=== PATIENT | male | born 1955 | race Caucasian/White ===

== ENCOUNTER 2021-08-21 16:36 | Emergency (ER) | payer OTHER, SELFPAY ==
--- NOTE | 2021-08-21 16:39 | ED.URI ---
HPI - URI/Sore Throat General Chief Complaint: Upper Respiratory Infection Stated Complaint: Sore Throat,Head Congestion,Bilateral Ear Pain Time Seen by Provider: 08/21/21 16:53 Source: patient and RN notes reviewed Mode of arrival: ambulatory Limitations: no limitations History of Present Illness HPI Narrative: 65-year-old male presents concern for sore throat, nasal congestion, bilateral ear pain, diarrhea, body aches. Reports symptoms started on Saturday, worsened on Saturday. He reports he has been vaccinated for Covid. 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 MD elicited complaint: sore throat Related Data Home Medications Medication Instructions Recorded Confirmed atorvastatin 80 mg PO DAILY 08/21/21 08/21/21 losartan 100 mg PO DAILY 08/21/21 08/21/21 metformin 850 mg PO DAILY 08/21/21 08/21/21 sildenafil (pulm.hypertension) 20 mg PO PRN PRN 08/21/21 08/21/21 Allergies Allergy/AdvReac Type Severity Reaction Status Date / Time iodine Allergy Severe Anaphylaxis Verified 08/21/21 16:55 Review of Systems Review of Systems: CONSTITUTIONAL: Denies malaise, chills, sweats, or fever. EYES: Denies visual changes, redness, or discharge. ENT: Reports rhinorrhea, congestion, otalgia and sore throat. CARDIOVASCULAR: Denies chest pain, palpitations, or edema. RESPIRATORY: Denies cough or dyspnea. GASTROINTESTINAL: Denies abdominal pain, nausea, vomiting. Reports diarrhea SKIN: Denies rash or itching. MUSCULOSKELETAL: Reports myalgia. NEUROLOGIC: Reports headache. All systems reviewed & are unremarkable except as noted in HPI and below PMFSH Comments At time of signature, agree with nursing past medical, surgical, social and family history. There is no relevant family history pertinent to the presenting complaint Exam Narrative: GENERAL: Well-appearing, well-nourished, and in no acute distress. HEAD: Normocephalic EYES: PERRLA, conjunctivae clear ENT: Nares clear, clear discharge. Mucous membranes moist. TM pearly mark with dull light reflex bilaterally; no tragal tenderness. Oropharynx not erythematous without lesions. Tonsils not enlarged and without exudate, no drooling, no hoarseness, no trismus, uvula midline. NECK: Supple. No lymphadenopathy CHEST: Clear to auscultation, breath sounds equal. No wheezing, rhonchi, rales, or stridor. No respiratory distress, speaks in full sentences. HEART: Regular rate and rhythm. No murmur heard. SKIN: Warm, dry, no rash. NEURO: Alert and oriented x3. PSYCH: Normal mood and affect Course Course Emergency Course: Patient is aware of diagnosis, understands and agrees to treatment plan. Anticipatory guidance given. Patient agrees to follow-up as directed and is aware of reasons to seek care at the emergency department. Portions of this record may have been created with voice recognition software Vital Signs Vital signs: Reviewed. MDM - URI/Sore Throat MDM Narrative Medical decision making narrative: Differential diagnosis considered: Coon virus, strep pharyngitis, allergic rhinitis, upper respiratory tract infection, sinusitis, rhinosinusitis, nasopharyngitis. viral pharyngitis, otitis media, otitis externa, pneumonia, bronchitis, viral cough syndrome, viral syndrome, and influenza. Exam findings show no acute concerns or changes; patient is non-toxic appearing and is in no distress. Patient is appropriate for outpatient treatment and follow-up. Lab Data Lab results narrative: PCR Covid test ordered Critical Care Time Critical Care Time Critical Care Time: No Discharge Plan Discharge Clinical Impression: Upper respiratory infection Qualifiers: URI type: unspecified viral URI Qualified Code(s): J06.9 - Acute upper respiratory infection, unspecified Patient Disposition: Home, Self-Care Condition: Stable Instructions: Upper Respiratory Infection (ED) Additional Instructions: A Covid PCR is being sent to the lab,
[2021-08-21 16:50] VITALS: BP 147/85; PULSE 88; RESP 16; TEMP 37.1; O2SAT 96
[2021-08-22 18:19] LABS: SARS-CoV-2 RNA PCR Negative
== END 2021-08-21 17:10 | disposition home or self-care (01) ==
PROVIDERS: Emergency Provider Nurse Practitioner
DX: J06.9 Acute upper respiratory infection, unspecified (principal); Z20.822 Contact with and (suspected) exposure to COVID-19
CPT/HCPCS: 99213; C9803; G0463; U0003; U0005

== ENCOUNTER 2022-10-24 08:10 | Emergency (ER) | payer OTHER, SELFPAY ==
--- NOTE | 2022-10-24 08:18 | ED.URI ---
HPI - URI/Sore Throat General Chief Complaint: Upper Respiratory Infection Stated Complaint: cold/flu sx Time Seen by Provider: 10/24/22 08:43 Source: patient and RN notes reviewed Mode of arrival: ambulatory Limitations: no limitations History of Present Illness HPI Narrative: 66-year-old male presents with concern for 3-4 day history of nasal congestion, rhinorrhea, persistent cough. 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 He reports his coworkers have had similar symptoms. He has received a flu shot. He denies diarrhea, vomiting, nausea. Reports some muscle aches that he thinks are related to coughing MD elicited complaint: cough Related Data Home Medications Medication Instructions Recorded Confirmed atorvastatin 80 mg tablet 80 mg PO DAILY 08/21/21 10/24/22 losartan 100 mg tablet 100 mg PO DAILY 08/21/21 10/24/22 metformin 850 mg tablet 850 mg PO DAILY 08/21/21 10/24/22 sildenafil (pulm.hypertension) 20 20 mg PO PRN PRN Erectile 08/21/21 10/24/22 mg tablet Dysfunction tamsulosin 0.4 mg capsule 0.4 mg PO DAILY 10/24/22 10/24/22 Allergies Allergy/AdvReac Type Severity Reaction Status Date / Time iodine Allergy Severe Anaphylaxis Verified 10/24/22 08:45 Review of Systems Review of Systems: CONSTITUTIONAL: Reports malaise, low-grade fever. EYES: Denies visual changes, redness, or discharge. ENT: Reports rhinorrhea, congestion. Denies sinus pain, otalgia and sore throat. CARDIOVASCULAR: Denies chest pain, palpitations, or edema. RESPIRATORY: Reports cough. Denies dyspnea. GASTROINTESTINAL: Denies abdominal pain, nausea, vomiting, diarrhea SKIN: Denies rash or itching. MUSCULOSKELETAL: Reports myalgia. NEUROLOGIC: Denies headache. All systems reviewed & are unremarkable except as noted in HPI and below PMFSH Comments At time of signature, agree with nursing past medical, surgical, social and family history. There is no relevant family history pertinent to the presenting complaint Exam Narrative: GENERAL: Nontoxic-appearing and in no acute distress. HEAD: Normocephalic EYES: PERRLA, conjunctivae clear ENT: Nares clear, turbinates edematous and erythematous, clear discharge. Mucous membranes moist. TM pearly mark with sharp light reflex bilaterally; no tragal tenderness. Oropharynx not erythematous without lesions. Tonsils not enlarged and without exudate, no drooling, no hoarseness, no trismus, uvula midline. NECK: Supple. No lymphadenopathy CHEST: Clear to auscultation, breath sounds equal. No wheezing, rhonchi, rales, or stridor. No respiratory distress, speaks in full sentences. Cough noted HEART: Regular rate and rhythm. No murmur heard. SKIN: Warm, dry, no rash. NEURO: Alert and oriented x3. PSYCH: Normal mood and affect Course Course Emergency Course: Patient is aware of diagnosis, understands and agrees to treatment plan. Anticipatory guidance given. Patient agrees to follow-up as directed and is aware of reasons to seek care at the emergency department. Portions of this record may have been created with voice recognition software Level of Care: Express Care Visit Vital Signs Vital signs: Reviewed. MDM - URI/Sore Throat MDM Narrative Medical decision making narrative: Differential diagnosis considered: Coon virus, strep pharyngitis, allergic rhinitis, upper respiratory tract infection, sinusitis, rhinosinusitis, nasopharyngitis. viral pharyngitis, otitis media, otitis externa, pneumonia, bronchitis, viral cough syndrome, viral syndrome, and influenza. Exam findings show no acute concerns or changes; patient is non-toxic appearing and is in no distress. Patient is appropriate for outpatient treatment and follow-up. Lab Data Attestation: I reviewed the patient's lab results. Critical Care Time Critical Care Time Critical Care Time: No Discharge Plan Discharge Clinical Impression: Influenza A Patient Disposition: Home, Self-Care Condition: Stable Instructions: Influenza (
[2022-10-24 08:27] VITALS: BP 128/83; PULSE 107; RESP 20; TEMP 37.3; O2SAT 98
== END 2022-10-24 08:54 | disposition home or self-care (01) ==
PROVIDERS: Emergency Provider Nurse Practitioner
DX: J10.1 Influenza due to other identified influenza virus with other respiratory manifestations (principal); Z20.822 Contact with and (suspected) exposure to COVID-19; E78.00 Pure hypercholesterolemia, unspecified; I10 Essential (primary) hypertension; K21.9 Gastro-esophageal reflux disease without esophagitis; Z86.16 Personal history of COVID-19
CPT/HCPCS: 87426; 87804; 99213; C9803; G0463

== ENCOUNTER 2022-11-14 10:08 | Outpatient (CLI) | payer OTHER, SELFPAY ==
--- NOTE | ~2022-11-14 | XR_ITS ---
Clinical Indication: Cough PA and lateral views of the chest: Comparison: 03/25/2004 Findings: The lungs are clear, without evidence of focal consolidation or pleural effusion. Cardiome diastinal silhouette is within normal limits. Bones and soft tissues are unremarkable. Impression: Normal chest. Reviewed, dictated and finalized at location [] [facility] Impression: Normal chest.
== END 2022-11-14 10:09 | disposition home or self-care (01) ==
LOC: ANHLAB 10:14 → ANHIMG 10:28
DX: R05.3 Chronic cough (principal)
CPT/HCPCS: 71046

== ENCOUNTER 2025-05-30 10:47 | Emergency (ER) | payer OTHER, SELFPAY ==
[2025-05-30 10:55] VITALS: BP 94/58; PULSE 87; RESP 16; TEMP 36.3; O2SAT 95
--- NOTE | 2025-05-30 11:16 | ED.EYEPROB ---
HPI - Eye Problem General Chief complaint: Eye Problems Stated complaint: LT Eye Problem Source: patient Mode of arrival: ambulatory Limitations: no limitations History of Present Illness HPI Narrative: Patient is a 69-year-old male who presents to the clinic with of left eyelid swelling and pain x 1 day. Patient wears glasses, but no contacts. He has not been using anything over the counter. Denies any drainage from eye. Denies any foreign body sensation, vision loss, fevers, nausea, or vomiting. Related Data Home Medications ?Medication ?Instructions ?Recorded ?Confirmed ?Last Taken ?Type atorvastatin 80 mg tablet 80 mg PO DAILY 08/21/21 05/30/25 Unknown History losartan 100 mg tablet 100 mg PO DAILY 08/21/21 05/30/25 Unknown History metformin 850 mg tablet 850 mg PO DAILY 08/21/21 05/30/25 Unknown History sildenafil (pulm.hypertension) 20 20 mg PO PRN PRN Erectile 08/21/21 05/30/25 Unknown History mg tablet Dysfunction tamsulosin 0.4 mg capsule 0.4 mg PO DAILY 10/24/22 05/30/25 Unknown History azelastine 137 mcg (0.1 %) nasal intranasal 05/30/25 Unknown History spray carvedilol 6.25 mg tablet mg 05/30/25 Unknown History sertraline 50 mg tablet mg 05/30/25 Unknown History tirzepatide 2.5 mg/0.5 mL mg subcut 05/30/25 Unknown History subcutaneous pen injector (Mounjaro) trazodone 150 mg tablet mg 05/30/25 Unknown History Allergies Allergy/AdvReac Type Severity Reaction Status Date / Time iodine Allergy Severe Anaphylaxis Verified 05/30/25 11:04 Review of Systems Review of Systems: CONSTITUTIONAL: Denies body aches, fever, chills EYES: Endorses swelling, redness and pain to left?eye; No FB sensation or photophobia. Denies visual changes. ENT: Denies rhinorrhea, congestion, sore throat, or otalgia. CARDIOVASCULAR: Denies chest pain, palpitations. RESPIRATORY: Denies cough or dyspnea. GASTROINTESTINAL: Denies abdominal pain, nausea, vomiting, or diarrhea. SKIN: Denies rash, itching, or wounds. MUSCULOSKELETAL: Denies back pain, joint pain, or myalgia. NEUROLOGIC: Denies headache, numbness, tingling, or weakness. All systems reviewed & are unremarkable except as noted in HPI and below PMFSH Comments At time of signature, I have reviewed and agree with nursing past medical, surgical, social and family history unless otherwise noted. Please see nursing chart for further information. There is no relevant family history pertinent to the presenting complaint. Exam Narrative: GENERAL: Well-appearing HEAD: Normocephalic, atraumatic. EYES: No?conjunctival injection, left upper eye lid swelling and redness c/w stye to left eye. 3mm tender nodule to left upper eye lid. EOMI. ?Lid eversion with no foreign body. Lashes normal. ENT: Mucous membranes pink and moist. ?No rhinorrhea. ?TMs normal bilaterally. ?Throat normal. Uvula midline. CHEST: ?Clear to auscultation. HEART: Regular rate and rhythm. ABDOMEN: Soft, nontender, nondistended SKIN: Warm, dry, no rash. ?Normal skin turgor. NEURO: No focal deficits. Alert and oriented x3 PSYCH: ?Normal affect. Course Course Level of Care: Express Care Visit Vital Signs Vital signs: Vital Signs Temperature 97.4 F L 05/30/25 10:55 Pulse Rate 87 05/30/25 10:55 Respiratory Rate 16 05/30/25 10:55 Blood Pressure 94/58 L 05/30/25 10:55 Pulse Oximetry 95 05/30/25 10:55 Oxygen Delivery Room Air 05/30/25 10:55 Temperature 97.4 F L 05/30/25 10:55 Pulse Rate 87 05/30/25 10:55 Respiratory Rate 16 05/30/25 10:55 Blood Pressure 94/58 L 05/30/25 10:55 Pulse Oximetry 95 05/30/25 10:55 Oxygen Delivery Room Air 05/30/25 10:55 Reviewed MDM - Eye Problem MDM Narrative Medical decision making narrative: Discussed physical exam findings. Ofloxacin prescription given. Advised supportive measures and signs/symptoms to go to the ER. Pt is appropriate for outpt treatment and follow up. Differential Diagnosis Differential diagnosis: Likely conjunctivitis and other (hordeolum, cellulitis. ) Critical Care Time Critical Care Time Critical Care Time: No Discharge Plan Discharge Clinical Impression: Hordeolum Qualifiers: Hordeolum type: unspecified type Laterality: left Eyelid: upper Qualified Code(s): H00.014 - Hordeolum externum left upper eyelid Patient Disposition: Home Condition: Stable Instructions: Gabino (ED) Additional Instructions: Apply warm, moist compresses on the affected area frequently (for 5 to 10 minutes three to five times per day) in order to help with drainage. Massage and gentle wiping of the affected eyelid after the warm compress can also help with drainage. You can use baby shampoo to wash the eye area Avoid wearing contact lenses. Take medication as directed. If the lesion does not improve within one to two weeks, please follow up with an expeditionary fighting vehicle crewman for further management. Patient Language: Faroese Prescriptions: New ofloxacin 0.3 % drops See Rx Instructions .ROUTE .COMPLEX Qty: 10 0RF Rx Instructions: put 1-2 drps into left eye every 2-4 h x 2 days, then 1-2 drps 4 times/day days 3-7 No Action carvedilol 6.25 mg tablet trazodone 150 mg tablet azelastine 137 mcg (0.1 %) spray,non-aerosol INTRANASAL sertraline 50 mg tablet Mounjaro 2.5 mg/0.5 mL pen injector SUBCUT atorvastatin 80 mg tablet 80 mg PO DAILY metformin 850 mg tablet 850 mg PO DAILY losartan 100 mg tablet 100 mg PO DAILY sildenafil (pulm.hypertension) 20 mg tablet 20 mg PO PRN PRN (Reason: Erectile Dysfunction) ipratropium bromide 0.03 % spray,non-aerosol 2 spray NASAL TID PRN (Reason: nasal drainage) Qty: 30 0RF Rx Instructions: administer into each nostril tamsulosin 0.4 mg capsule 0.4 mg PO DAILY albuterol sulfate 90 mcg/actuation HFA aerosol inhaler 2 puff INHALATION QID PRN (Reason: shortness of breath or wheezing) Qty: 8.5 0RF Follow-up/Referrals: Sharon,Abdiel German [Other] Time of Disposition: 11:23
== END 2025-05-30 11:27 | disposition home or self-care (01) ==
DX: H00.014 Hordeolum externum left upper eyelid (principal)
CPT/HCPCS: 99213; G0463